=== PATIENT | female | born 1960 | race Caucasian/White ===

== ENCOUNTER 2021-09-22 15:21 | Emergency (ER) | payer MEDICAID ==
[2021-09-22] MEDS ORDERED: LORazepam 1 MG Tab PO ONE (15:37)
== END 2021-09-22 16:53 | disposition home or self-care (01) ==
LOC: LL.ED 15:21
DX: F41.9 Anxiety disorder, unspecified (principal); Z88.8 Allergy status to other drugs, medicaments and biological substances
CPT/HCPCS: 93005; 93010; 99284; 99284-25; A9270-GY

== ENCOUNTER 2021-12-17 13:50 | Emergency (ER) | payer MEDICAID | END 2021-12-17 15:25 | disposition home or self-care (01) | LOC: LL.ED 13:50 | DX: R27.0 Ataxia, unspecified (principal); R11.0 Nausea; T42.6X5A Adverse effect of other antiepileptic and sedative-hypnotic drugs, initial encounter; I10 Essential (primary) hypertension; K21.9 Gastro-esophageal reflux disease without esophagitis; Z88.8 Allergy status to other drugs, medicaments and biological substances; Z79.899 Other long term (current) drug therapy | CPT/HCPCS: 99283 ==